=== PATIENT | female | born 1945 | race Caucasian/White ===

== ENCOUNTER → 2016-11-03 | Outpatient (CLI) | payer BC ==
[~2016-11-03] MED LIST: BCTROWC TOP; CETI10TA84 PO; CLB/200 PO; CLC/300 PO; DICL1GEL12 TOP; FLUO0.05 TOP; HYDR-4380 PO; METR1GEL3 TOP; MISCCAP80 PO; MOME100A INH; MONT1TAB3 PO; MULT-506 PO; PRLSR20 PO; RIFA300C34 PO; TRAZ50TA35 PO
== END | disposition home or self-care (01) ==
LOC: C.RDSM 13:23
PROVIDERS: ATTEND Physical Medicine & Rehabilitation Sports Medicine
DX: M17.9 Osteoarthritis of knee, unspecified (principal)

== ENCOUNTER → 2017-01-27 | Outpatient (CLI) | payer BC ==
--- NOTE | 2017-01-27 13:33 | DIAGNOSTIC IMAGING REPORT ---
RIGHT ANKLE 3 VIEWS HISTORY: RIGHT ANKLE PAIN Right COMPARISON: None. FINDINGS: No acute fracture or dislocation. Large plantar heel spur. Old avulsion type injury at the medial malleolus. Subcutaneous edema within the lower leg which is likely chronic. Mild soft tissue swelling within the ankle. No radiopaque foreign bodies. IMPRESSION: No fractures. Electronically signed by: Adryan Kidd M.D. 01/27/2017 1:32 PM Dictated Date/Time: 01/27/2017 1:31 PM
== END | disposition home or self-care (01) ==
LOC: C.RDSM 12:49
PROVIDERS: ATTEND Internal Medicine
DX: M25.571 Pain in right ankle and joints of right foot (principal)

== ENCOUNTER → 2017-03-25 | Outpatient (CLI) | payer BC ==
--- NOTE | 2017-03-25 15:47 | MAMMOGRAPHY REPORT ---
UNILATERAL RIGHT DIGITAL DIAGNOSTIC MAMMOGRAM TOMOSYNTHESIS WITH CAD AND TARGETED RIGHT ULTRASOUND: 03/25/2017 CLINICAL HISTORY: The patient reports right lateral breast pain for approximately one month, which s he describes as soreness/tingling. She denies any palpable lumps. TECHNIQUE: Breast tomosynthesis in addition to standard 2D mammography was performed. Current study was also evaluated with a Computer Aided Detection (CAD) system. Right CC and MLO 2-D and tomosynt hesis images were obtained. COMPARISON: Comparison is made to exams dated: 07/17/2016 mammogram, 07/04/2015 mammogram, 06/13/2014 m ammogram, 06/08/2013 mammogram, 06/07/2012 mammogram, and 06/04/2011 mammogram - [facility]. BREAST COMPOSITION: The tissue of the right breast is almost entirely fatty. FINDINGS: A square marker potter the site of pain in the right upper outer quadrant. There are no s uspicious masses, calcifications, or areas of architectural distortion noted mammographically. Ther e has been no significant interval change compared to prior exams. Round circumscribed benign-appea ring 4 mm mass within the right 9:00 breast is stable dating back to at least the 2007 exam. Targeted ultrasound was performed of the area of pain pointed out by the patient, in the right far l ateral breast at approximately 8 to 9:00, centered around 10-11 cm from the nipple. Sonographically normal tissue is seen in this region, without evidence of a mass or other suspicious sonographic ab normality. IMPRESSION: ACR BI-RADS CATEGORY 2: BENIGN, TARGETED ULTRASOUND ACR BI-RADS CATEGORY 2: BENIGN No suspicious mammographic or sonographic abnormality at the site of right lateral breast pain point ed out by the patient. There is no mammographic or targeted sonographic evidence of malignancy. Re commend clinical follow-up for right breast pain, and recommend routine bilateral screening mammogra ms which are due June 2017. The patient has been verbally notified of the results. Approximately 10% of breast cancers are not detected with mammography. A negative mammographic repor t should not delay biopsy if a clinically suggestive mass is present. Juanita Padilla M.D. /:03/25/2017 13:57:20 [employer] Teacher Librarian: Darlene POON(Juan)(M), [facility] letter sent: Normal 10/27 BI-RADS Code: ACR BI-RADS Category 2: Benign Ultrasound BI-RADS: ACR BI-RADS Category 2: Benign
== END | disposition home or self-care (01) ==
LOC: C.MAMM 13:14
PROVIDERS: ATTEND Physician Assistant
DX: N63 Unspecified lump in breast (principal); N64.4 Mastodynia

== ENCOUNTER → 2017-07-21 | Outpatient (CLI) | payer BC ==
--- NOTE | 2017-07-22 07:57 | MAMMOGRAPHY REPORT ---
BILATERAL DIGITAL SCREENING MAMMOGRAM TOMOSYNTHESIS WITH CAD: 07/21/2017 CLINICAL HISTORY: Routine screening. Patient has no complaints. TECHNIQUE: Breast tomosynthesis in addition to standard 2D mammography was performed. Current study was also evaluated with a Computer Aided Detection (CAD) system. COMPARISON: Comparison is made to exams dated: 03/25/2017 mammogram, 07/17/2016 mammogram, 07/04/2015 ma mmogram, 06/13/2014 mammogram, 06/08/2013 mammogram, and 06/07/2012 mammogram - [facility]ter. BREAST COMPOSITION: The tissue of both breasts is almost entirely fatty. FINDINGS: No suspicious mass, architectural distortion or cluster of microcalcifications is seen. IMPRESSION: ACR BI-RADS CATEGORY 1: NEGATIVE There is no mammographic evidence of malignancy. A 1 year screening mammogram is recommended. The pa tient will receive written notification of the results. Approximately 10% of breast cancers are not detected with mammography. A negative mammographic report should not delay biopsy if a clinically suggestive mass is present. Mary parker/tiffany:07/21/2017 22:34:31 Head Control Clerk: Gail Hidalgo RT(R)(M), [facility] letter sent: Normal 1/2 BI-RADS Code: ACR BI-RADS Category 1: Negative
== END | disposition home or self-care (01) ==
LOC: C.MAMM 10:51
PROVIDERS: ATTEND Family Medicine
DX: Z12.31 Encounter for screening mammogram for malignant neoplasm of breast (principal)

== ENCOUNTER → 2017-07-27 | Outpatient (CLI) | payer BC ==
--- NOTE | 2017-07-27 12:12 | DIAGNOSTIC IMAGING REPORT ---
ABDOMINAL ULTRASOUND, RIGHT UPPER QUADRANT HISTORY: Epigastric pain.. COMPARISON: Abdominal ultrasound 05/25/2013. FINDINGS: Pancreas: The pancreas demonstrates a normal echotexture. Liver: The liver is echogenic consistent with fatty change. Measures 20.5 cm in length. Gallbladder: The gallbladder is surgically absent. CBD: 6 mm. Right kidney: No hydronephrosis. IMPRESSION: 1. Hepatomegaly demonstrating fatty change. 2. Cholecystectomy. Electronically signed by: Adryan Kidd M.D. 07/27/2017 12:10 PM Dictated Date/Time: 07/27/2017 12:09 PM
== END | disposition home or self-care (01) ==
LOC: C.ULTR 11:22
PROVIDERS: ATTEND Nurse Practitioner Family
DX: R10.84 Generalized abdominal pain (principal); R50.9 Fever, unspecified; R16.0 Hepatomegaly, not elsewhere classified; Z90.49 Acquired absence of other specified parts of digestive tract

== ENCOUNTER → 2017-08-17 | Outpatient (CLI) | payer BC ==
--- NOTE | 2017-08-17 15:26 | DIAGNOSTIC IMAGING REPORT ---
CHEST 2 VIEWS ROUTINE CLINICAL HISTORY: Persistent cough. Bilateral lower extremity edema. COMPARISON STUDY: 05/10/2016 FINDINGS: The cardiac and mediastinal contours remain stable. There is no failure. No focal pulmonary consolidation. There are no pleural effusions. Increased markings the left lung base are felt to be secondary to a prominent fat pad and atelectatic change. There is stable right hilar fullness. There is calcific tendinitis involving the right shoulder. There are postsurgical changes of a left shoulder arthroplasty.[ IMPRESSION: No active disease in the chest. Electronically signed by: Javan Chamberlain M.D. 08/17/2017 3:24 PM Dictated Date/Time: 08/17/2017 3:23 PM
== END | disposition home or self-care (01) ==
LOC: C.RAD1850 14:09
PROVIDERS: ATTEND Family Medicine
DX: R60.0 Localized edema (principal)

== ENCOUNTER → 2017-11-23 | Outpatient (CLI) | payer BC | END | disposition home or self-care (01) | LOC: C.RDSM 19:05 | PROVIDERS: ATTEND Physical Medicine & Rehabilitation Sports Medicine | DX: M17.0 Bilateral primary osteoarthritis of knee (principal) ==